=== PATIENT | female | born 1990 | race Two or more races ===

== ENCOUNTER 2017-07-03 12:06 | Emergency (ER) | payer OTHER ==
[~2017-07-03] VITALS: Ht 162.6 cm; Wt 65.8 kg
[2017-07-03 12:13] VITALS: BP 139/90
[2017-07-03 13:56] LABS: Hepatitis B Surface Antibody Positive
== END 2017-07-03 16:20 | disposition home or self-care (01) ==
LOC: ER 12:06
DX: Z77.21 Contact with and (suspected) exposure to potentially hazardous body fluids (principal); J45.909 Unspecified asthma, uncomplicated
CPT/HCPCS: 36415; 86703; 86706; 86803; 87340

== ENCOUNTER → 2017-09-15 | Outpatient (CLI) | payer OTHER ==
[2017-09-17 09:29] LABS: Hepatitis B Surface Antibody Positive
[2017-09-17 09:37] LABS: Hepatitis B Surface Antigen Negative (Negative)
== END | disposition home or self-care (01) ==
LOC: LAB 11:08
PROVIDERS: ATTEND Preventive Medicine Preventive Medicine/Occupational Environmental Medicine
DX: Z57.8 Occupational exposure to other risk factors (principal)
CPT/HCPCS: 36415; 86703; 86706; 86803; 87340